=== PATIENT | female | born 2000 | race Caucasian/White ===

== ENCOUNTER 2022-06-13 00:06 | Emergency (ER) | payer OTHER, SELFPAY ==
[2022-06-13 00:07] VITALS: BP 146/100; PULSE 79; RESP 18; TEMP 36.1; O2SAT 97; BMI 23.5
[2022-06-13] MEDS: Lidocaine HCl 2% PF/Epi 1:200 20 ML VIAL INFILTRATI (01:34)
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
== END 2022-06-13 02:15 | disposition home or self-care (01) ==
PROVIDERS: Emergency Provider Emergency Medicine Emergency Medical Services
DX: S51.012A Laceration without foreign body of left elbow, initial encounter (principal); W03.XXXA Other fall on same level due to collision with another person, initial encounter; Y93.9 Activity, unspecified; Y92.9 Unspecified place or not applicable; Y99.9 Unspecified external cause status
CPT/HCPCS: 12001; 99282; 99284